=== PATIENT | male | born 1960 | race Hispanic/Latino ===

== ENCOUNTER 2018-08-02 15:13 | Outpatient (CLI) | payer BC ==
--- NOTE | 2018-08-02 19:39 | Magnetic Resonance Report ---
FINAL REPORT EXAM: MRI ABDOMEN WO CONTRAST HISTORY: h/o iron overload TECHNIQUE: MRI of the abdomen without contrast PRIORS: There are no prior studies submitted for comparison FINDINGS: Liver demonstrates a heterogeneous pattern of signal intensity. On inphase imaging majority the liver demonstrates increased signal intensity with a largely homogeneous pattern some areas demonstrating mildly decreased signal. On out of phase imaging majority of the liver. Left lobe and the anterior ri ght lobe of the liver demonstrate signal drop-off with some sparing at the leland hepatis and posterio r right lobe. No definitive mass or nodularity identified. Spleen is normal in size and signal intensity Kidneys demonstrate normal signal intensity no evidence for hydronephrosis. There is no evidence for ascites No peripancreatic inflammatory changes are observed. IMPRESSION: Signal changes within the liver most consistent with fatty infiltration which most a somewhat geograp hic appearance. Superimposed focal areas of liver iron deposition is not excluded.
== END 2018-08-02 15:14 | disposition home or self-care (01) ==
LOC: MRI 15:13
PROVIDERS: ATTEND Internal Medicine Hematology & Oncology
DX: E83.110 Hereditary hemochromatosis (principal)
CPT/HCPCS: 74181